=== PATIENT | female | born 1950 | race Caucasian/White ===

== ENCOUNTER 2017-11-22 19:08 | Inpatient (IN) ==
[2017-11-22] MEDS ORDERED: ONDANSETRON 4 MG/2 ML VIAL IV STA (22:52)
[2017-11-22] MEDS ORDERED: PANTOPRAZOLE 40 MG VIAL IV STA (22:52)
[2017-11-22] MEDS ORDERED: SODIUM CHLORIDE 0.9% 500 ML IV STA (22:52)
[2017-11-22 23:14] LABS: Amylase 96 U/L (25-115); Troponin I Only < 0.015 NG/ML (0.00-0.045)
[2017-11-22 23:38] LABS: Eosinophils # 0.1 10*3/uL (0.0-0.87); Eosinophils % 3.2 % (0.00-10.9); Hematocrit 30.1 VOL% (35.7-47.0); Hemoglobin 9.8 GM/DL (12.0-16.0); Immature Granulocytes % 0.2 %; Immature Granulocytes Absolute 0.01 #; Lymphocytes % 25.7 % (21.3-54.2); Mean Corpuscular HGB Conc 32.6 GM/DL (32-36); Mean Corpuscular Hemoglobin 28 PG (27-34); Mean Platelet Volume 9.8 FL (9.6-12.0); Monocytes # 0.4 10*3/uL (0.11-0.8); Monocytes % 8.9 % (1.7-12.7); Neutrophils # 2.5 10*3/uL (1.4-7.4); Platelet Count 97 T/CUMM (130-400); Red Cell Distribution Width 15.2 % (9.3-17.3)
[2017-11-23 00:02] LABS: Albumin 4.4 G/DL (3.4-5.0); Bilirubin,Total 0.9 MG/DL (0.2-1.0); Calcium 12.1 MG/DL (8.5-10.1); Osmolality,Calculated 286.7 MOS/KG (273-304); Potassium 3.9 MMOL/L (3.5-5.1); Total Protein 9.1 G/DL (6.4-8.3)
[2017-11-23 00:09] LABS: Band Neutrophils 4 % (0-10); Eosinophils 3 % (0-10); Lymphocytes 30 % (20-55); Myelocytes 4 %; Segmented Neutrophils 59 % (50-85); Total Cells Counted 100
[2017-11-23 00:11] LABS: Anisocytosis 1+; Platelet Estimate Decreased
[2017-11-23 00:39] LABS: Apearance,Urine Slightly Hazy (Clear); Bacteria,Urine Occasional /HPF (Few); Bilirubin,Urine Negative (Negative); Blood, Urine Negative (Negative); Glucose,Urine (UA) Negative (Negative); Ketones,Urine Negative (Negative); Mucus,Urine Occasional /LPF (Occasional); Nitrite,Urine Negative (Negative); Protein,Urine Negative; RBC,Urine 3 /HPF (0-4); Squamous Epithelial Cell,Urine Occasional /HPF (0-10); Urine Color Yellow (Yellow); Urine Specific Gravity 1.009 (1.001-1.035); Urine Urobilinogen < 2.0 EU/DL (0.2-1.0); WBC,Urine 36 /HPF (0-6)
[2017-11-23] MEDS ORDERED: ONDANSETRON 4 MG/2 ML VIAL IV PRN (02:16)
[2017-11-23] MEDS: SODIUM CHLORIDE 0.9% 1,000 ML IV SCH ×3 (03:38→20:09)
[2017-11-23] MEDS: cefTRIAXone 1,000 MG in SYRINGE 1 EACH IV SCH (03:39)
[2017-11-23] MEDS: LEVOTHYROXINE 88 MCG TABLET PO SCH (06:23)
[2017-11-23 08:35] LABS: Albumin 4.1 G/DL (3.4-5.0); Bilirubin,Total 0.5 MG/DL (0.2-1.0); Calcium 10.8 MG/DL (8.5-10.1); Osmolality,Calculated 292.3 MOS/KG (273-304); Potassium 3.8 MMOL/L (3.5-5.1); Total Protein 8.3 G/DL (6.4-8.3)
[2017-11-23] MEDS: ASCORBIC ACID 500 MG TABLET PO SCH (09:53)
[2017-11-23] MEDS: POLYETHYLENE GLYCOL POWDER 17 GM PACK PO SCH (11:42)
[2017-11-23] MEDS: PYRIDOXINE 50 MG TABLET PO SCH (11:42)
[2017-11-23] MEDS: PROPRANOLOL 10 MG TABLET PO SCH (18:42)
[2017-11-23] MEDS: ALLOPURINOL 100 MG TABLET PO SCH (18:43)
[2017-11-24] MEDS: cefTRIAXone 1,000 MG in SYRINGE 1 EACH IV SCH (02:09)
[2017-11-24] MEDS: SODIUM CHLORIDE 0.9% 1,000 ML IV SCH (04:15)
[2017-11-24 05:01] LABS: Basophils % 0.6 % (0.0-0.8); Eosinophils # 0.1 10*3/uL (0.0-0.87); Eosinophils % 3.1 % (0.00-10.9); Hematocrit 24.5 VOL% (35.7-47.0); Hemoglobin 7.9 GM/DL (12.0-16.0); Immature Granulocytes % 0.6 %; Immature Granulocytes Absolute 0.01 #; Lymphocytes # 0.4 10*3/uL (1.4-4.0); Lymphocytes % 26.9 % (21.3-54.2); Mean Corpuscular HGB Conc 32.2 GM/DL (32-36); Mean Corpuscular Hemoglobin 28 PG (27-34); Mean Corpuscular Volume 87.2 FL (87-102); Mean Platelet Volume 10.2 FL (9.6-12.0); Monocytes # 0.2 10*3/uL (0.11-0.8); Monocytes % 10.6 % (1.7-12.7); Neutrophils # 0.9 10*3/uL (1.4-7.4); Neutrophils % 58.2 % (38.7-73.9); Platelet Count 80 T/CUMM (130-400); Red Blood Count 2.81 MC/CUMM (3.8-5.5); Red Cell Distribution Width 15.1 % (9.3-17.3); White Blood Count 1.6 T/CUMM (4-12)
[2017-11-24 05:18] LABS: Calcium 9.1 MG/DL (8.5-10.1); Osmolality,Calculated 298.6 MOS/KG (273-304); Potassium 3.6 MMOL/L (3.5-5.1)
[2017-11-24 06:05] LABS: Eosinophils 5 % (0-10); Hypochromasia 2+; Lymphocytes 22 % (20-55); Microcytosis 2+; Platelet Estimate Decreased; Segmented Neutrophils 68 % (50-85); Total Cells Counted 100
[2017-11-24] MEDS: LEVOTHYROXINE 88 MCG TABLET PO SCH (06:12)
[2017-11-24] MEDS: POLYETHYLENE GLYCOL POWDER 17 GM PACK PO SCH (08:58)
[2017-11-24] MEDS: ASCORBIC ACID 500 MG TABLET PO SCH (08:58)
[2017-11-24] MEDS: PYRIDOXINE 50 MG TABLET PO SCH (11:58)
[2017-11-24] MEDS: PROPRANOLOL 10 MG TABLET PO SCH (18:48)
[2017-11-24] MEDS: ALLOPURINOL 100 MG TABLET PO SCH (18:48)
[2017-11-24] MEDS: CALCIUM (CARBONATE) 600 MG TABLET PO SCH (20:44)
[2017-11-25] MEDS: cefTRIAXone 1,000 MG in SYRINGE 1 EACH IV SCH (02:44)
[2017-11-25 05:40] LABS: Basophils % 0.6 % (0.0-0.8); Eosinophils # 0.1 10*3/uL (0.0-0.87); Eosinophils % 3.9 % (0.00-10.9); Hematocrit 24.2 VOL% (35.7-47.0); Lymphocytes # 0.4 10*3/uL (1.4-4.0); Lymphocytes % 28.6 % (21.3-54.2); Mean Corpuscular HGB Conc 33.1 GM/DL (32-36); Mean Corpuscular Hemoglobin 28 PG (27-34); Mean Corpuscular Volume 85.8 FL (87-102); Monocytes # 0.2 10*3/uL (0.11-0.8); Monocytes % 9.7 % (1.7-12.7); Neutrophils # 0.9 10*3/uL (1.4-7.4); Neutrophils % 57.2 % (38.7-73.9); Platelet Count 79 T/CUMM (130-400); Red Blood Count 2.82 MC/CUMM (3.8-5.5); Red Cell Distribution Width 15.2 % (9.3-17.3); White Blood Count 1.5 T/CUMM (4-12)
[2017-11-25 06:00] LABS: Calcium 9.6 MG/DL (8.5-10.1); Osmolality,Calculated 294.7 MOS/KG (273-304); Potassium 3.6 MMOL/L (3.5-5.1)
[2017-11-25] MEDS: LEVOTHYROXINE 88 MCG TABLET PO SCH (06:08)
[2017-11-25 06:48] LABS: Lymphocytes 30 % (20-55); Segmented Neutrophils 70 % (50-85); Total Cells Counted 100
[2017-11-25 06:49] LABS: Hypochromasia Slight; Platelet Estimate Decreased
[2017-11-25] MEDS: POLYETHYLENE GLYCOL POWDER 17 GM PACK PO SCH (08:38)
[2017-11-25] MEDS: ASCORBIC ACID 500 MG TABLET PO SCH (08:39)
[2017-11-25] MEDS: CALCIUM (CARBONATE) 600 MG TABLET PO SCH (08:39)
[2017-11-25 09:03] VITALS: BP 137/65
[2017-11-25] MEDS ORDERED: CALCIUM (CARBONATE) 600 MG TABLET PO SCH (21:00)
== END 2017-11-25 13:03 | disposition home or self-care (01) | DRG 641 ==
LOC: N.ED 19:08 → N.EDINP 11-23 02:16 → N.4E 11-23 02:51
PROVIDERS: ADMIT Internal Medicine; ATTEND Internal Medicine